=== PATIENT | female | born 1985 | race Caucasian/White ===

== ENCOUNTER 2024-05-04 11:27 | Emergency (ER) | payer OTHER, SELFPAY ==
[2024-05-04 11:59] VITALS: BP 108/57; PULSE 63; RESP 18; TEMP 36.5; O2SAT 99; BMI 19.5
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
[2024-05-04] MEDS: LIDOCAINE 5% PATCH 1 EACH TOP (13:37)
[2024-05-04] MEDS: ACETAMINOPHEN 325 MG TABLET 975 MG PO (13:37)
[2024-05-04] MEDS: KETOROLAC 30 MG/ML VIAL IM (13:38)
[2024-05-04 14:49] VITALS: BP 105/57; PULSE 60; RESP 16; O2SAT 99
== END 2024-05-04 14:30 | disposition home or self-care (01) ==
PROVIDERS: Emergency Provider Physician Assistant
DX: S16.1XXA Strain of muscle, fascia and tendon at neck level, initial encounter (principal); S39.012A Strain of muscle, fascia and tendon of lower back, initial encounter; V89.2XXA Person injured in unspecified motor-vehicle accident, traffic, initial encounter
CPT/HCPCS: 96372; 99283; J1885